=== PATIENT | female | born 1965 | race Caucasian/White ===

== ENCOUNTER 2024-02-20 19:00 | Emergency (ER) | payer OTHER, SELFPAY ==
[2024-02-20 19:12] VITALS: BP 129/83
[2024-02-20 19:24] VITALS: BMI 26.7
--- NOTE | 2024-02-20 20:46 | ED.GENMED ---
History of Present Illness
General
Chief Complaint: Visual Problem
Source: patient
Exam Limitations: none
Time Seen by Provider: 02/20/24 20:31
Nursing documentation reviewed up to this point in time: agreed with
History of Present Illness
History of Present Illness:
58-year-old female with no significant chronic medical issues presents to the emergency room for evaluation of blurry vision in her left eye. Patient reports onset of symptoms around 6 PM shortly after getting out of the shower and they have been
constant since that time. They are restricted the left eye and resolve when she closes her left eye. She denies any loss of vision. She denies any eye pain. She does note that she had a mild headache throughout the day and still has a mild
headache across the frontal region. She denies any change in her speech. She denies any facial drooping. She denies any weakness or numbness in her extremities. She denies any trauma to the head or eye. She denies any other complaints. She
denies similar symptoms in the past.
Past History
Past History
ED Past Medical History: Psychiatric (Anxiety)
ED Past Surgical History: None
Social History
Tobacco: Former smoker
Alcohol: Occasional
Personal: Single
Living: with family
Review of Systems
Review of Systems
All Other Systems: ROS reviewed and negative except as documented in HPI and ROS
Constitutional: Denies fever
EENT: Reports other (Visual disturbance)
Respiratory: Denies trouble breathing
Cardiac: Denies chest pain
ABD/GI: Denies abdominal pain, nausea or vomiting
: Denies flank pain
Musculoskeletal: Denies neck pain
Neurological: Reports headache; Denies dizzy, weakness or numbness
Phy Exam
Physical Exam
Physical Exam:
General: Awake, alert; no acute distress
Head: Normocephalic, atraumatic
Eyes: Visual acuity R20/25, L20/25, B20/25; she has very slight ptosis left eye�she is unsure if this is normal for her or not; she has some conjunctival injection on the left, EOMI, pupils are equal round and reactive to light bilaterally, visual
mohamud are intact; on fluorescein exam she has no corneal abrasion, negative Arnoldo sign, no dendrites/pseudo dendrites; eye pH normal bilaterally; on pressure testing eye pressure right 9/9/10, left 11/10/11; on retinal exam of the left eye no
paleness or cupping of the optic disc, no retinal hemorrhage noted, vasculature appears normal
Throat: Airway intact, handling secretions
Neck: Trachea midline, supple without meningismus
Lungs: Breathing comfortably no distress
Heart: Regular rate
Abd: Soft, non distended, nontender
Neuro: Cranial nerves intact 2 through 12, speech fluid with no dysarthria or aphasia, no limb ataxia, motor and sensory function intact and symmetric upper and lower extremities
Extremities: No edema in extremities, warm and well-perfused
Scores
Heart Failure Risk
Heart Failure Risk Score: Not Applicable
Heart Score for Chest Pain Patients
STEMI patient?: Not applicable
Withdrawal Assessment of Alcohol
Withdrawal Assessment Completed?: Not applicable
Course
Orders/Labs/Results
Orders:
Orders
02/20/24 19:[address] [CT Head W/o Iv Contrast] Urgent
Comment:
Reason For Exam: MORROW, L eye vision changes
02/20/24 20:40
Visual Acuity- Treatment ONCE
02/20/24 20:47
Fluorescein Sodium [Ful-Alayna] 1 mg .ROUTE .STK-MED ONE
Tetracaine HCl [Tetracaine 0.5% Ophthalmic Solution] 1 drop .ROUTE .STK-MED ONE
Vital Signs
Initial and Last Documented VS:
Initial Vital Signs
Temp Pulse Resp BP Pulse Ox
36.8 C 75 18 129/83 97
02/20/24 19:12 02/20/24 19:12 02/20/24 19:12 02/20/24 19:12 02/20/24 19:12
Last Documented Vital Signs
Temp Pulse Resp BP Pulse Ox
36.8 C 75 18 129/83 97
02/20/24 19:12 02/20/24 19:12 02/20/24 19:12 02/20/24 19:12 02/20/24 19:12
MDM/Problems Addressed
Differential Diagnosis Includes:
Migraine, conjunctivitis (chemical, bacterial, viral), glaucoma, retinal vein/artery occlusion, brain mass, hemorrhage, stroke less likely with no vision loss
MDM/Problems Addressed:
58-year-old female presents with blurry vision in the left eye that started prior to arrival shortly after finishing in the shower. She also has slight ptosis unclear if this is normal for her and some conjunctival injection left eye�physical exam
as documented. She has normal eye pressure, normal retinal exam, normal visual acuity. She did CT head in triage which was normal�he has had a headache today. Possible that this is a migraine with aura but given conjunctival injection suspect
this is likely early conjunctivitis�possibly a chemical conjunctivitis from something in the shower or early viral/bacterial conjunctivitis. She has no loss of vision reassuring exam no clear indication for emergent transfer to [facility]; I think
she is stable for discharge can start on antibiotic drops and have her see four horse hitch driver tomorrow in the office. She is comfortable with this plan. I did speak to her in detail about return precautions including if she feels she is having vision
loss or if her blurriness is getting worse, or if you start to have eye pain, or she develops any other symptoms. All questions answered.
*Radiology
Radiology exam reviewed: radiology read reviewed
*Pulse Oximetry
Patient hypoxic: no
*Critical Care Note
Total Time (30-74mins, 75-104mins- exclusive of procedures): Not Applicable
Data Reviewed
Source: patient
ED Attending Note
-
Portions of this chart may have been created with voice recognition software.� Occasional wrong word or��sound alike� substitutions may have occurred due to the inherent limitations of voice recognition software.
Discharge Plan
Departure
Patient Disposition: Home (Routine Discharge)
Date of Disposition: 02/20/24
Time of Disposition: 21:56
Patient with high blood pressure during this ER visit?: No
Discharge Problem:
Blurred vision, left eye
Instructions: Conjunctivitis (pink eye)
Prescriptions:
New
ciprofloxacin HCl 0.3 % drops
See Rx Instructions .ROUTE .COMPLEX Qty: 5 0RF
Rx Instructions:
Instill 1 to 2 drops into the eye every 2 hours while awake for 2 days and 1 to 2 drops every 4 hours while awake for the next 5 days
No Action
lorazepam 0.5 mg tablet
0.5 mg PO BIDPRN PRN (Reason: anxiety)
Patient Comments:
02/20/2024: last filled 01/30/24, 60 tabs for 30 days from [facility]
fluticasone propionate [Flonase] 50 mcg/actuation [place],Suspension
1 spray INTRANASAL DAILYPRN PRN (Reason: allergies)
loratadine [Claritin] 10 mg Tablet
10 mg PO DAILYPRN PRN (Reason: allergies)
Wegovy 0.25 mg/0.5 mL Pen Injector
0.4 mg SC TU
Referrals:
Alfredito Owusu DO [Family Provider] -
Jim Shearer MD [Active] - Call in 1-3 days for appt (Call tomorrow at 8:30 AM to schedule ED follow up)
Activity Restrictions/Additional Instructions:
You should call the four horse hitch driver first thing tomorrow morning to schedule follow-up�ideally you should see the four horse hitch driver tomorrow in the office. If you have worsening blurry vision, any vision loss, eye pain, or any other symptoms that are
concerning to you should return immediately to the emergency room.
Thank you for visiting the Emergency Department at [facility].
1. Please schedule a follow up appointment as directed. Call first thing tomorrow morning to make an appointment.
2. If indicated, please take your medications as instructed and indicated on discharge paperwork.
3. If any of your symptoms do not improve, or persist, or become more severe within 6-12 hours, please return to the emergency department for further care.
4. Please return to the emergency department if you develop a headache, neck pain/stiffness, fever greater than 100.4F, chest pain, shortness of breath, persistent nausea, vomiting, slurred speech, difficulty walking, numbness/tingling, weakness,
signs of infection or any other symptoms that are worrisome to you.
Please call [phone] if you have any questions.
Interventions
Interventions:
*Risk Screen - Suicide Last Done: 02/20/24 19:12
*General Assessment Last Done: 02/20/24 19:12
*Neglect/Abuse Screening Last Done: 02/20/24 19:12
ED- Neurological Assessment Last Done: 02/20/24 19:30
ED-EENT Assessment Last Done: 02/20/24 19:26
Discharge Date and Time
Print Language: WELSH
[2024-02-20] MEDS: CILOXAN 0.3% OPHTHALMIC SOLUTION 2 DROP OPHTH (22:42)
[2024-02-20 22:44] VITALS: BP 109/69
== END 2024-02-20 22:58 | disposition home or self-care (01) ==
LOC: EMR 19:00
PROVIDERS: EMERGENCY PHYSICIAN Emergency Medicine; FAMILY PHYSICIAN Family Medicine
DX: H53.8 Other visual disturbances (principal); R51.9 Headache, unspecified; Z87.891 Personal history of nicotine dependence
CPT/HCPCS: 99284; 70450